=== PATIENT | female | born 1975 | race Caucasian/White ===

== ENCOUNTER 2018-02-06 11:23 | Emergency (ER) | payer OTHER ==
[~2018-02-06] VITALS: Ht 167.6 cm; Wt 76.6 kg
[~2018-02-06 11:23] MED LIST: ANTIVERT25 MG PO; LEVOXYL125 MCG PO; LEVOXYL25 MCG PO
[2018-02-06 11:56] LABS: HEMATOCRIT 39.9 % (36.0-46.0); HEMOGLOBIN 13.4 G/DL (11.9-15.5); MCHC 33.6 G/DL (30.0-36.0); MCV 89.5 FL (83-99); PLATELET COUNT 237 K/uL (156-360); RBC DIS.WIDTH-CV 13.9 % (11.8-14.6); RBC DIS.WIDTH-SD 45.8 % (39-53); RED BLOOD COUNT 4.46 M/uL (3.80-5.20); WHITE BLOOD COUNT 6.7 K/uL (4.1-10.2)
[2018-02-06 12:08] LABS: ALBUMIN 4.3 g/dL (3.2-4.8); CHLORIDE 107 mEq/L (99-109); SODIUM 141 mEq/L (136-147)
[2018-02-06 12:10] LABS: GLUCOSE 100 mg/dL (70-99)
[2018-02-06 12:11] LABS: TOTAL PROTEIN 7.6 g/dL (6.4-8.3)
[2018-02-06 12:12] LABS: TOTAL BILIRUBIN 0.6 mg/dL (0.0-1.0)
[2018-02-06 12:14] LABS: ALKALINE PHOSPHATASE 56 IU/L (3-129); GFR ESTIMATE (CALCULATED) > 59 mL/min/
[2018-02-06 12:14] LABS: APPEARANCE CLEAR ((CLEAR)); BILIRUBIN NEGATIVE; BLOOD MODERATE; COLOR STRAW ((YELLOW)); GLUCOSE (STRIP) NEGATIVE; KETONES NEGATIVE; LEUKOCYTES NEGATIVE; NITRITE NEGATIVE; PROTEIN (STRIP) NEGATIVE; SPECIFIC GRAVITY 1.011 (1.000-1.030); UROBILINOGEN 0.2 MG/DL (0.2-1.0)
[2018-02-06 12:15] LABS: UREA NITROGEN (BUN) 16 mg/dL (9-23)
[2018-02-06 12:16] LABS: AST (GOT) 23 IU/L (2-34)
[2018-02-06 12:17] LABS: ALT (GPT) 22 IU/L (3-49)
[2018-02-06 12:23] LABS: QUANTITATIVE HCG < 4.0 MIU/ML
[2018-02-06 12:23] LABS: BACTERIA RARE /HPF; EPITHELIAL CELLS RARE /HPF; MUCUS TRACE /LPF; UCUL ADDED? NO; WHITE BLOOD CELLS 0-5 /HPF (0-5)
[2018-02-06] MEDS ORDERED: PROAIR HFA8.5 GM IH (12:58)
[2018-02-06] MEDS ORDERED: MONTELUKAST SOD10 MG PO (12:59)
[2018-02-06 13:28] LABS: LIPASE 22 U/L (1.0-51.0)
[2018-02-06] MEDS ORDERED: OMEPRAZOLE40 M1 PO (15:06)
[2018-02-06 15:20] VITALS: BP 128/80
== END 2018-02-06 15:26 | disposition home or self-care (01) ==
LOC: EME 11:23
DX: K27.9 Peptic ulcer, site unspecified, unspecified as acute or chronic, without hemorrhage or perforation (principal); E03.9 Hypothyroidism, unspecified; Z88.1 Allergy status to other antibiotic agents
CPT/HCPCS: 76705; 80053; 81003; 83690; 84702; 85027; 99281; 99284